=== PATIENT | male | born 1970 | race Hispanic/Latino ===

== ENCOUNTER 2018-11-11 02:57 | Emergency (ER) | payer SELFPAY ==
[2018-11-11] VITALS (8 sets, daily range): BP systolic 110–149; BP diastolic 70–105; PULSE 108–128; RESP 12–28; TEMP 36.1; O2SAT 93–98
--- NOTE | 2018-11-11 03:08 | DI.RAD.S_ITS ---
PROCEDURE: XR CHEST 1V INDICATIONS: SOB, hx asthma, recent PNA? TECHNIQUE: One view of the chest was acquired. COMPARISON: None. FINDINGS: Surgical changes and devices: None. Lungs and pleura: Lungs are clear. No pleural effusions or pneumothorax. Mediastinum: Mediastinal contours appear normal. Heart size is normal. Bones and chest wall: No suspicious bony lesions. Overlying soft tissues appear unremarkable. IMPRESSION: No acute cardiopulmonary findings. Dictated by: Cora Romo M.D. on 11/11/2018 at 7:07 Approved by: Cora Romo M.D. on 11/11/2018 at 7:07
--- NOTE | 2018-11-11 03:08 | ED.SOB ---
HPI - SOB/Dyspnea General Chief Complaint: Shortness of Breath/Dyspnea Stated Complaint: sob/asthma Time Seen by Provider: 11/11/18 03:00 Source: patient and EMS Mode of arrival: EMS Limitations: no limitations History of Present Illness 48-year-old male nonsmoker with history of asthma presents by EMS for evaluation of increasing difficulty in breathing and failed response to albuterol inhaler at home. He denies any fever chills nor nausea or vomiting. He denies any cough or sputum production. He has had no diarrhea or urinary complaints. He suggests maybe he was diagnosed with pneumonia about 1 week ago was given no antibiotics. He denies any known triggers or exposure to ill persons. He admits to smoking some meth over the past day or 2 MD Complaint: shortness of breath Onset (ago): day(s) Severity: moderate Consistency/Duration: constant Relieving factors: nothing Known history of: asthma Associated symptoms: denies other symptoms Treatment prior to arrival: none Related Data Home Medications Medication Instructions Recorded Confirmed albuterol sulfate 2 puff INHALATION Q4-6H PRN 11/11/18 11/11/18 Previous Rx's Medication Instructions Recorded albuterol sulfate 2 puff INHALATION Q4H PRN #1 each 11/11/18 prednisone 20 mg PO DAILY #5 tab 11/11/18 Allergies Allergy/AdvReac Type Severity Reaction Status Date / Time No Known Drug Allergies Allergy Verified 11/11/18 03:05 Review of Systems Constitutional Denies chills, Denies fever(s), Denies lethargy and Denies weakness Eyes Denies change in vision, Denies eye discharge, Denies irritation and Denies loss of vision ENT Ears, Nose, Mouth, and Throat: Denies change in voice, Denies neck pain and Denies sore throat Cardiovascular Denies chest pain, Denies irregular heart rhythm, Denies lightheadedness, Denies palpitations, Reports dyspnea, Denies dyspnea on exertion and Denies orthopnea Respiratory Denies cough, Reports dyspnea, Denies dyspnea on exertion and Reports wheezing Gastrointestinal Gastrointestinal: Denies abdominal pain, Denies change in bowel habits, Denies diarrhea, Denies nausea and Denies vomiting Genitourinary Denies hematuria, Denies flank pain, Denies urinary incontinence and Denies urinary urgency Musculoskeletal Denies neck pain Integumentary/Breasts Denies pruritus, Denies erythema, Denies rash and Denies wounds Neurologic Denies confusion, Denies loss of vision and Denies weakness Psychiatric Denies anxiety, Denies confusion, Denies depression, Denies homicidal ideation and Denies suicidal ideation Endocrine Denies palpitations Hematologic/Lymphatic Denies easy bruising Allergic/Immunologic Reports wheezing [facility] Medical History Asthma (Acute) Social History Smoking Status: Former smoker Social History Smoking Status: Former smoker Exam Narrative Exam Narrative: GENERAL: 48-year-old male appears younger than stated age, obviously in respiratory distress, actively using a breathing treatment and some increased work of breathing HEAD: Atraumatic. Normocephalic. No temporal or scalp tenderness. EYES: Pupils equal round and reactive. Extraocular motions intact. No scleral icterus. No injection or drainage. ENT: Nose without bleeding, purulent drainage or septal hematoma. Throat without erythema, tonsillar hypertrophy or exudate. Uvula midline. Airway patent. NECK: Trachea midline. No JVD or lymphadenopathy. Supple, nontender, no meningeal signs. CARDIOVASCULAR: Tachycardic but regular rhythm without murmurs, gallops, or rubs. RESPIRATORY: Wheezing in all goel with prolonged expiratory phase GASTROINTESTINAL: Abdomen soft, non-tender, nondistended. No hepato-splenomegaly, or palpable masses. No guarding. EXTREMITIES: No clubbing, cyanosis, or edema. No joint tenderness, effusion, or edema noted. BACK: Nontender without deformity or crepitance. No flank tenderness. NEURO: AOx3. SKIN: No rash or erythema. Initial Vital Signs Initial Vital Signs: Vital Signs Temperature 97.0 F L 11/11/18 02:58 Pulse Rate 124 H 11/11/18 02:58 Respiratory Rate 23 11/11/18 02:58 Blood Pressure 149/87 H 11/11/18 02:58 Pulse Oximetry 97 11/11/18 02:58 Course Course Narrative: Patient feeling much better after the above-stated therapies. His normally controlled asthma was likely exacerbated by smoking methamphetamines which he admits to. Multiple bronchodilators have opened up his lungs. Initial elevated lactate improves rapidly with fluid administration. Orders Ordered: ED Orders 11/11/18 03:00 B Type Natriuretic Peptide Stat Basic Metabolic Panel Stat Complete Blood Count AUTO DIFF Stat Magnesium Stat Procalcitonin Stat Troponin & CK Cardiac Panel Stat 11/11/18 03:07 Consult to Respiratory Therapy Evaluate & Treat EKG-12 Lead Stat 11/11/18 03:08 XR chest 1V Stat 11/11/18 03:16 Lactate (Lactic Acid) Stat 11/11/18 03:18 Blood Culture Stat Sodium Chloride (Normal Saline 0.9%) 1,000 mls @ 150 mls/hr IV CONT CHARLEE Last Infusion: 11/11/18 04:52 Dose: 0 mls/hr Infusion: 11/11/18 03:55 Dose: 999 mls/hr Admin: 11/11/18 03:12 Dose: 150 mls/hr Discontinued Medications Albuterol (Ventolin) 2.5 mg INH NOW ONE Stop: 11/11/18 05:25 Last Admin: 11/11/18 05:33 Dose: 2.5 mg Albuterol/Ipratropium (Duoneb) 3 ml INH NOW ONE Stop: 11/11/18 03:07 Last Admin: 11/11/18 03:13 Dose: 3 ml Sodium Chloride (Normal Saline 0.9%) 1,000 mls @ 1,000 mls/hr IV BOLUS ONE Stop: 11/11/18 05:52 Last Infusion: 11/11/18 05:53 Dose: 0 mls/hr Admin: 11/11/18 04:53 Dose: 1,000 mls/hr Methylprednisolone (Solu-Medrol 125 Mg Vial) 125 mg IV NOW ONE Stop: 11/11/18 03:07 Last Admin: 11/11/18 03:12 Dose: 125 mg Vital Signs - 8 hr 11/11/18 02:58 11/11/18 03:00 11/11/18 03:07 Temperature 97.0 F L Pulse Rate 124 H 128 H 124 H Respiratory Rate 23 18 28 H Blood Pressure 149/87 H Blood Pressure [Right Arm] 138/105 H Pulse Oximetry 97 94 96 11/11/18 03:30 11/11/18 04:00 11/11/18 05:00 Temperature Pulse Rate 118 H 108 H 118 H Respiratory Rate 22 12 22 Blood Pressure Blood Pressure [Right Arm] 138/85 123/81 118/72 Pulse Oximetry 93 95 11/11/18 05:30 Temperature Pulse Rate 114 H Respiratory Rate 14 Blood Pressure Blood Pressure [Right Arm] Pulse Oximetry 98 MDM - SOB/Dyspnea Lab Data Result diagrams: 11/11/18 03:00 11/11/18 03:00 Lab Results 11/11/18 11/11/18 11/11/18 Range/Units 03:00 03:00 03:00 WBC 8.5 (4.5-11.0) X10^3/uL RBC 4.76 (4.5-5.9) X10^6/uL Hgb 14.8 (13.5-17.5) g/dL Hct 44.2 (41-53) % MCV 92.9 (80-100) fL MCH 31.0 (26-34) PG MCHC 33.4 (30-36) % RDW 14.7 (11.6-14.8) % Plt Count 249 (150-400) X10^3/uL Neut % (Auto) Not Reportable Lymph % (Auto) Not Reportable [place] % (Auto) Not Reportable Eos % (Auto) Not Reportable Baso % (Auto) Not Reportable Lymph # (Auto) Not Reportable [place] # (Auto) Not Reportable Baso # (Auto) Not Reportable Total Counted 100 Seg Neutrophils % 57.0 (38-70) % Lymphocytes % (Manual) 22.0 L (25-45) % Monocytes % (Manual) 8.0 (2-11) % Eosinophils % (Manual) 13.0 H (2-4) % Neutrophils # (Manual) 4845 (0858-5915) /uL RBC Morphology Normal morphology Sodium 143 (137-145) mmol/L Potassium 3.6 (3.4-5.1) mmol/L Chloride 102 (98-107) mmol/L Carbon Dioxide 21 L (22-32) mmol/L BUN 11 (9-20) mg/dL Creatinine 1.00 (0.66-1.25) mg/dL Estimated GFR > 60.0 (>60) mL/min BUN/Creatinine Ratio 11.0 (6-22) Glucose 99 (70-100) mg/dL Lactate (0.7-2.1) mmol/L Calcium 9.7 (8.4-10.2) mg/dL Magnesium 2.5 H (1.6-2.3) mg/dL Total Creatine Kinase 581 H (55-170) U/L CK-MB (CK-2) 4.28 H (<2.37) ng/mL CK-MB (CK-2) Rel Index 0.7 L (1.5-5.0) % Troponin I < 0.012 (0.01-0.034) ng/mL B-Natriuretic Peptide < 100 (<100) Procalcitonin < 0.05 (<0.5) ng/mL 11/11/18 11/11/18 Range/Units 03:16 05:22 WBC (4.5-11.0) X10^3/uL RBC (4.5-5.9) X10^6/uL Hgb (13.5-17.5) g/dL Hct (41-53) % MCV (80-100) fL MCH (26-34) PG MCHC (30-36) % RDW (11.6-14.8) % Plt Count (150-400) X10^3/uL Neut % (Auto) Lymph % (Auto) [place] % (Auto) Eos % (Auto) Baso % (Auto) Lymph # (Auto) [place] # (Auto) Baso # (Auto) Total Counted Seg Neutrophils % (38-70) % Lymphocytes % (Manual) (25-45) % Monocytes % (Manual) (2-11) % Eosinophils % (Manual) (2-4) % Neutrophils # (Manual) (8840-7784) /uL RBC Morphology Sodium (137-145) mmol/L Potassium (3.4-5.1) mmol/L Chloride (98-107) mmol/L Carbon Dioxide (22-32) mmol/L BUN (9-20) mg/dL Creatinine (0.66-1.25) mg/dL Estimated GFR (>60) mL/min BUN/Creatinine Ratio (6-22) Glucose (70-100) mg/dL Lactate 3.1 H 1.8 (0.7-2.1) mmol/L Calcium (8.4-10.2) mg/dL Magnesium (1.6-2.3) mg/dL Total Creatine Kinase (55-170) U/L CK-MB (CK-2) (<2.37) ng/mL CK-MB (CK-2) Rel Index (1.5-5.0) % Troponin I (0.01-0.034) ng/mL B-Natriuretic Peptide (<100) Procalcitonin (<0.5) ng/mL Discharge Plan Departure Patient Disposition: Home Clinical Impression: Asthma with exacerbation Qualifiers: Asthma severity: mild Asthma persistence: intermittent Qualified Code(s): J45.21 - Mild intermittent asthma with (acute) exacerbation Instructions: Asthma -- Adult Activity Restrictions/Additional Instructions: *You have been diagnosed with [asthma exacerbation secondary to inhalation of illicit drugs] *What to do: *Take medications as directed *Follow up with your primary care provider in 2-3 days, call for an appointment. Let them know you were seen in the Emergency Department and that we ask that you be seen in follow up *Return to ER if you should have any new, worsening or concerning symptoms Prescriptions: New prednisone 20 mg tablet 20 mg PO DAILY Qty: 5 RF: 0 albuterol sulfate 90 mcg/actuation aerosol powdr breath activated 2 puff INHALATION Q4H PRN (Reason: shortness of breath or wheezing) Qty: 1 RF: 0 No Action albuterol sulfate 90 mcg/actuation Hfa Aerosol Inhaler 2 puff INHALATION Q4-6H PRN (Reason: Wheezing) RF: 0
[2018-11-11] MEDS: methylPREDNISolone 125 MG/2 ML VIAL IV (03:12)
[2018-11-11] MEDS: SODIUM CHLORIDE 0.9% 1,000 ML 150 ML IV (03:12)
[2018-11-11] MEDS: ALBUTEROL/IPRATROPIUM 3 ML AMPUL INH (03:13)
[2018-11-11 03:20] LABS: Hematocrit 44.2 % (41-53); Hemoglobin 14.8 g/dL (13.5-17.5); Mean Corpuscular HGB Conc 33.4 % (30-36); Mean Corpuscular Volume 92.9 fL (80-100); Platelet Count 249 X10^3/uL (150-400); Red Blood Cell Count 4.76 X10^6/uL (4.5-5.9); Red Cell Distribution Width 14.7 % (11.6-14.8); White Blood Cell Count 8.5 X10^3/uL (4.5-11.0)
[2018-11-11 03:23] LABS: Blood Urea Nitrogen 11 mg/dL (9-20); Calcium 9.7 mg/dL (8.4-10.2); Carbon Dioxide 21 mmol/L (22-32); Chloride 102 mmol/L (98-107); Creatine Kinase 581 U/L (55-170); Estimated Glomerular Filt Rate > 60.0 mL/min (>60); Glucose 99 mg/dL (70-100); HEMOLYSIS < 15 (0-50); Magnesium 2.5 mg/dL (1.6-2.3); Potassium 3.6 mmol/L (3.4-5.1); Sodium 143 mmol/L (137-145)
[2018-11-11 03:24] LABS: Add Manual Diff / Slide Review YES
[2018-11-11 03:33] LABS: Neutrophils Absolute Manual 4845 /uL (3000-5900); RBC Morphology Normal Morphology; Total Cells Counted 100
[2018-11-11 03:35] LABS: Lactate (Lactic Acid) 3.1 mmol/L (0.7-2.1)
[2018-11-11 03:35] LABS: Troponin I < 0.012 ng/mL (0.01-0.034)
[2018-11-11 03:36] LABS: Procalcitonin < 0.05 ng/mL (<0.5)
[2018-11-11 03:38] LABS: CKMB % Relative Index 0.7 % (1.5-5.0); Creatine Kinase MB 4.28 ng/mL (<2.37)
[2018-11-11 03:40] LABS: B Type Natriuretic Peptide < 100 (<100)
--- NOTE | 2018-11-11 03:56 | PC.NURSE ---
Fluids increase per Dr. Shabazz d/t elevated lactate.
[2018-11-11] MEDS: SODIUM CHLORIDE 0.9% 1,000 ML 1000 ML IV (04:53)
[2018-11-11 05:23] LABS: Reflexed Lactate in 2 Hours Y
[2018-11-11] MEDS: ALBUTEROL 2.5 MG/3 ML NEB (ADULT) INH (05:33)
[2018-11-11 05:39] LABS: Lactate 2HR (Lactic Acid Rflx) 1.8 mmol/L (0.7-2.1)
== END 2018-11-11 06:48 | disposition home or self-care (01) ==
PROVIDERS: Emergency Provider Emergency Medicine
DX: J45.21 Mild intermittent asthma with (acute) exacerbation (principal); R06.00 Dyspnea, unspecified
CPT/HCPCS: 36415; 71045; 80048; 82550; 82553; 83605; 83735; 83880; 84145; 84484; 85025; 87040; 93005; 94640; 96361; 96374; 99284; 99285; J2930; J7613